=== PATIENT | female | born 1975 | race African-American/Black ===

== ENCOUNTER 2018-10-22 03:55 | Emergency (ER) | payer OTHER ==
[~2018-10-22] VITALS: Ht 157.5 cm; Wt 90.0 kg
[2018-10-22] MEDS ORDERED: LORAZEPAM 2MG/ML CPJ IM PRN (04:30)
[2018-10-22 05:20] LABS: HEMATOCRIT. 34.6 % (36.0-48.0); HEMOGLOBIN. 11.4 g/dL (12.0-16.0); MEAN CORPUSCULAR HEMOGLOBIN 29.6 pg (28.0-32.0); MEAN CORPUSCULAR VOLUME 89.6 fL (81.0-99.0); RED BLOOD CELL COUNT 3.86 mill/uL (4.2-5.4); RED CELL DISTRIBUTION WIDTH 15.2 % (11.6-14.6)
[2018-10-22 05:24] LABS: CLARITY URINE TURBID (CLEAR); COLOR URINE DARK YELLOW (YELLOW); KETONES URINE 2+ (NEGATIVE); LEUKOCYTE ESTERASE URINE NEGATIVE (NEGATIVE); NITRITE URINE NEGATIVE (NEGATIVE); OCCULT BLOOD URINE NEGATIVE (NEGATIVE); PROTEIN URINE 1+ (NEGATIVE); SPECIFIC GRAVITY URINE 1.036 (1.005-1.030)
[2018-10-22 05:29] LABS: CHLORIDE 112 mEq/L (98-107)
[2018-10-22 05:33] LABS: ETHANOL BLOOD < 10 mg/dL
[2018-10-22 05:33] LABS: *AMPHETAMINES SCREEN URINE NEGATIVE (NEGATIVE); *BARBITURATES SCREEN URINE NEGATIVE (NEGATIVE); *BENZODIAZEPINES SCREEN URINE NEGATIVE (NEGATIVE); *COCAINE SCREEN URINE NEGATIVE (NEGATIVE); METHADONE URINE SCREEN NEGATIVE (NEGATIVE)
[2018-10-22 05:35] LABS: CANNABINOID URINE SCREEN NEGATIVE (NEGATIVE); OPIATES URINE SCREEN NEGATIVE (NEGATIVE); PHENCYCLIDINE URINE SCREEN NEGATIVE (NEGATIVE)
[2018-10-22 06:03] LABS: HCG SCREEN NEGATIVE
[2018-10-22 06:48] LABS: MEAN PLATELET VOLUME 11.5 fl (7.4-10.4)
[2018-10-22 06:49] LABS: PLATELET 170 x1000/uL (130-400)
[2018-10-22 06:55] LABS: ATYPICAL LYMPHOCYTES 1; PLATELET ESTIMATE NORMAL
[2018-10-23 15:15] VITALS: BP 122/72
== END 2018-10-23 16:23 ==
LOC: ER 03:55
DX: R45.1 Restlessness and agitation (principal); L29.9 Pruritus, unspecified; J45.909 Unspecified asthma, uncomplicated; I10 Essential (primary) hypertension; M79.673 Pain in unspecified foot; Z88.0 Allergy status to penicillin; Z88.8 Allergy status to other drugs, medicaments and biological substances
CPT/HCPCS: 36415; 80053; 80305; 80307; 80320; 80329; 81003; 84703; 85025; 96372; 99285; J2060; A4315; G0480

== ENCOUNTER 2018-11-29 22:01 | Emergency (ER) | payer OTHER ==
[~2018-11-29] VITALS: Ht 162.6 cm; Wt 72.0 kg
[2018-11-30 12:15] VITALS: BP 120/84
== END 2018-11-30 12:17 | disposition home or self-care (01) ==
LOC: ER 22:01
DX: S40.021A Contusion of right upper arm, initial encounter (principal); J45.909 Unspecified asthma, uncomplicated; I10 Essential (primary) hypertension; F25.9 Schizoaffective disorder, unspecified; Z88.0 Allergy status to penicillin; Z88.8 Allergy status to other drugs, medicaments and biological substances; X58.XXXA Exposure to other specified factors, initial encounter; Y93.89 Activity, other specified; Y92.89 Other specified places as the place of occurrence of the external cause; Y99.8 Other external cause status
CPT/HCPCS: 99283

== ENCOUNTER 2019-02-10 21:04 | Emergency (ER) | payer OTHER ==
[~2019-02-10] VITALS: Ht 154.9 cm; Wt 83.8 kg
[2019-02-11] MEDS ORDERED: ONDANSETRON HCL 4MG/2ML INJ IV STA (02:19)
[2019-02-11] MEDS ORDERED: SODIUM CHLORIDE 0.9% 1,000 ML IV ONE (02:19)
[2019-02-11] MEDS ORDERED: KETOROLAC 30MG/ML VIAL IV STA (02:19)
[2019-02-11 03:27] LABS: CHLORIDE 110 mEq/L (98-107); CLARITY URINE CLOUDY (CLEAR); COLOR URINE YELLOW (YELLOW); KETONES URINE TRACE (NEGATIVE); LEUKOCYTE ESTERASE URINE NEGATIVE (NEGATIVE); NITRITE URINE NEGATIVE (NEGATIVE); OCCULT BLOOD URINE NEGATIVE (NEGATIVE); PROTEIN URINE NEGATIVE (NEGATIVE); UROBILINOGEN URINE 0.2 E.U./dL (0.2-1.0)
[2019-02-11 03:36] LABS: BASOPHILS % 0.8 % (0.0-2.0); EOSINOPHILS % 5.3 % (0.0-5.0); HEMATOCRIT. 37.3 % (36.0-48.0); HEMOGLOBIN. 12.1 g/dL (12.0-16.0); LYMPHOCYTES % 24.6 % (20.0-50.0); MEAN CORPUSCULAR HEMOGLOBIN 29.4 pg (28.0-32.0); MEAN CORPUSCULAR VOLUME 90.6 fL (81.0-99.0); MEAN PLATELET VOLUME 11.6 fl (7.4-10.4); MONOCYTES % 6.9 % (2.0-8.0); NEUTROPHILS % 62.4 % (40.0-76.0); PLATELET 164 x1000/uL (130-400); RED BLOOD CELL COUNT 4.12 mill/uL (4.2-5.4); RED CELL DISTRIBUTION WIDTH 13.9 % (11.6-14.6)
[2019-02-11 07:30] VITALS: BP 99/57
== END 2019-02-11 07:30 | disposition home or self-care (01) ==
LOC: ER 21:04
DX: K57.30 Diverticulosis of large intestine without perforation or abscess without bleeding (principal); J45.909 Unspecified asthma, uncomplicated; I10 Essential (primary) hypertension; F20.9 Schizophrenia, unspecified; Z88.0 Allergy status to penicillin; Z88.8 Allergy status to other drugs, medicaments and biological substances; Z88.1 Allergy status to other antibiotic agents; Z88.9 Allergy status to unspecified drugs, medicaments and biological substances
CPT/HCPCS: 36415; 74176; 80053; 81003; 81025; 83690; 85025; 96361; 96374; 96375; 99284; J1885; J2405; J7030

== ENCOUNTER 2020-07-12 18:28 | Emergency (ER) | payer BC, MEDICAID ==
[~2020-07-12] VITALS: Ht 162.6 cm; Wt 60.0 kg
[2020-07-12] MEDS ORDERED: IBUPROFEN 600MG TABLET PO STA (19:24)
[2020-07-12 20:18] VITALS: BP 125/60
[2020-07-12 21:17] LABS: CLARITY URINE CLOUDY (CLEAR); COLOR URINE YELLOW (YELLOW); KETONES URINE NEGATIVE (NEGATIVE); LEUKOCYTE ESTERASE URINE 3+ (NEGATIVE); NITRITE URINE NEGATIVE (NEGATIVE); OCCULT BLOOD URINE TRACE (NEGATIVE); PH URINE 5.5 (4.5-8.0); PROTEIN URINE TRACE (NEGATIVE); SPECIFIC GRAVITY URINE 1.026 (1.005-1.030); UROBILINOGEN URINE 0.2 E.U./dL (0.2-1.0)
== END 2020-07-12 21:41 | disposition left against medical advice (07) ==
LOC: ER 18:28
DX: M54.5 Low back pain (principal); N39.0 Urinary tract infection, site not specified; J45.909 Unspecified asthma, uncomplicated; I10 Essential (primary) hypertension; F20.9 Schizophrenia, unspecified; Z88.0 Allergy status to penicillin; Z88.8 Allergy status to other drugs, medicaments and biological substances
CPT/HCPCS: 72100; 73502; 81003; 81025; 99284

== ENCOUNTER 2020-12-23 21:51 | Emergency (ER) | payer BC, MEDICAID ==
[~2020-12-23] VITALS: Ht 162.6 cm; Wt 68.0 kg
[2020-12-24] MEDS ORDERED: ACETAMINOPHEN 325MG TABLET PO ONE (00:30)
[2020-12-24 04:55] VITALS: BP 132/75
== END 2020-12-24 04:57 | disposition home or self-care (01) ==
LOC: ER 21:51
DX: R10.9 Unspecified abdominal pain (principal); T74.21XA Adult sexual abuse, confirmed, initial encounter; Y07.9 Unspecified perpetrator of maltreatment and neglect; F20.9 Schizophrenia, unspecified; F32.9 Major depressive disorder, single episode, unspecified; F41.9 Anxiety disorder, unspecified; Z88.0 Allergy status to penicillin; Z88.1 Allergy status to other antibiotic agents; Z88.3 Allergy status to other anti-infective agents; Z88.8 Allergy status to other drugs, medicaments and biological substances
CPT/HCPCS: 99283

== ENCOUNTER 2021-05-19 09:39 | Emergency (ER) | payer BC, MEDICAID ==
[~2021-05-19] VITALS: Ht 167.6 cm; Wt 65.0 kg
[2021-05-19 10:20] VITALS: BP 138/80
[2021-05-19 10:49] LABS: BASOPHILS % 1.3 % (0.0-2.0); EOSINOPHILS % 5.8 % (0.0-5.0); HEMATOCRIT. 38.2 % (36.0-48.0); HEMOGLOBIN. 12.6 g/dL (12.0-16.0); LYMPHOCYTES % 26.2 % (20.0-50.0); MEAN CORPUSCULAR HEMOGLOBIN 29.9 pg (28.0-32.0); MEAN CORPUSCULAR VOLUME 90.6 fL (81.0-99.0); MEAN PLATELET VOLUME 10.2 fl (7.4-10.4); MONOCYTES % 9.2 % (2.0-8.0); NEUTROPHILS % 57.5 % (40.0-76.0); PLATELET 170 x1000/uL (130-400); RED BLOOD CELL COUNT 4.22 mill/uL (4.2-5.4)
[2021-05-19 10:54] LABS: CHLORIDE 109 mEq/L (98-107)
[2021-05-19 10:59] LABS: ETHANOL BLOOD < 10 mg/dL
== END 2021-05-19 15:15 | disposition left against medical advice (07) ==
LOC: ER 09:39
DX: R45.851 Suicidal ideations (principal); Z88.0 Allergy status to penicillin; Z88.8 Allergy status to other drugs, medicaments and biological substances; Z88.9 Allergy status to unspecified drugs, medicaments and biological substances; Z88.1 Allergy status to other antibiotic agents; Z86.59 Personal history of other mental and behavioral disorders
CPT/HCPCS: 36415; 80053; 80320; 85025; 99283; G0480

== ENCOUNTER 2021-11-10 11:36 | Emergency (ER) | payer OTHER, MEDICAID ==
[~2021-11-10] VITALS: Ht 167.6 cm; Wt 73.0 kg
[2021-11-10 11:37] VITALS: BP 128/83
[2021-11-10] MEDS ORDERED: ACETAMINOPHEN 325MG TABLET PO STA (13:21)
[2021-11-10] MEDS ORDERED: BACITRACIN ZINC OINT UDPKT TOP ONE (13:30)
[2021-11-10 13:42] LABS: CLARITY URINE CLEAR (CLEAR); COLOR URINE YELLOW (YELLOW); KETONES URINE NEGATIVE (NEGATIVE); LEUKOCYTE ESTERASE URINE NEGATIVE (NEGATIVE); NITRITE URINE NEGATIVE (NEGATIVE); OCCULT BLOOD URINE TRACE (NEGATIVE); PH URINE 6.5 (4.5-8.0); PROTEIN URINE NEGATIVE (NEGATIVE); SPECIFIC GRAVITY URINE 1.004 (1.005-1.030); UROBILINOGEN URINE 0.2 E.U./dL (0.2-1.0)
[2021-11-10] MEDS ORDERED: BO1 TP (14:22)
[2021-11-10] MEDS ORDERED: ACET-2708 PO (14:22)
[2021-11-10] MEDS ORDERED: SULF1TAB48 PO (14:22)
[2021-11-10] MEDS ORDERED: TETANUS, DIPHTHERIA, PERTUSSIS VAC/PF 0.5ML (>10YR OLD) IM ONE (14:30)
== END 2021-11-10 14:50 | disposition home or self-care (01) ==
LOC: ER 11:36
DX: S70.312A Abrasion, left thigh, initial encounter (principal); S70.311A Abrasion, right thigh, initial encounter; R30.0 Dysuria; T74.21XA Adult sexual abuse, confirmed, initial encounter; Y92.89 Other specified places as the place of occurrence of the external cause; Y93.89 Activity, other specified; Z88.0 Allergy status to penicillin; Z88.8 Allergy status to other drugs, medicaments and biological substances
CPT/HCPCS: 81003; 90471; 90715; 99283

== ENCOUNTER 2021-12-19 09:07 | Emergency (ER) | payer OTHER, MEDICAID ==
[~2021-12-19] VITALS: Ht 154.9 cm; Wt 65.0 kg
[~2021-12-19 09:07] MED LIST: ACET-2708 PO; BO1 TP; SULF1TAB48 PO
[2021-12-19 09:13] VITALS: BP 95/51
== END 2021-12-19 10:16 | disposition home or self-care (01) ==
LOC: ER 09:19
DX: R06.02 Shortness of breath (principal); J45.909 Unspecified asthma, uncomplicated; F32.9 Major depressive disorder, single episode, unspecified
CPT/HCPCS: 99283